=== PATIENT | male | born 1980 | race Two or more races ===

== ENCOUNTER 2023-08-05 18:18 | Emergency (ER) | payer SELFPAY ==
[2023-08-05 18:30] VITALS: BP 141/79; PULSE 71; RESP 18; TEMP 97.7; BMI 29.1
[2023-08-05] MEDS ORDERED: ACETAMINOPHEN INJECTION 100 ML IVPB ONE (20:47)
[2023-08-05] MEDS: ACETAMINOPHEN 1000 MG/100 ML BAG IVPB ONE (21:01)
[2023-08-05] MEDS: LACTATED RINGERS SOLUTION 1000 ML INFUS.BAG IV ONE (21:02)
[2023-08-05 21:08] LABS: BASO % 0.7 % (0-2.0); EOS % 2.3 % (0-4.5); HEMATOCRIT 43.2 % (35.4-49); HEMOGLOBIN 14.8 GM/dL (11.7-16.9); LYMPH % 37.1 % (8-40); MCH 30.6 pg (25.7-33.7); MCHC 34.2 g/dl (32.0-35.9); MEAN CELL VOLUME 89.4 fl (80-96); MEAN PLT VOLUME 7.7 fl (7.5-11.1); MONO % 10.6 % (3.8-10.2); NEUT % 49.3 % (42.8-82.8); PLATELET COUNT 258 10^3/uL (134-434); RBC 4.83 M/mm3 (4.00-5.60); RDW 14.6 % (11.9-15.9); WHITE BLOOD COUNT 4.9 K/mm3 (4.0-10.0)
[2023-08-05 21:12] LABS: INR 1.06 (0.83-1.09); PROTHROMBIN TIME (PATIENT) 12.3 SEC (9.7-13.0)
[2023-08-05 21:15] LABS: ACTIVATED PTT 28.1 SECONDS (25.2-36.5)
[2023-08-05 21:23] LABS: POTASSIUM 4.6 mmol/L (3.5-5.1)
[2023-08-05 21:25] LABS: CALCIUM 9.6 mg/dL (8.5-10.1)
[2023-08-05 21:26] LABS: ALBUMIN 3.7 g/dl (3.4-5.0); BLOOD UREA NITROGEN 13.5 mg/dL (7-18); MAGNESIUM 2.3 mg/dL (1.8-2.4)
[2023-08-05 21:29] LABS: CREATININE 0.9 mg/dL (0.55-1.3)
[2023-08-05 21:30] LABS: TOT PROT 7.4 g/dl (6.4-8.2)
[2023-08-05 21:31] LABS: BILIRUBIN,TOTAL 0.3 mg/dL (0.2-1)
== END 2023-08-05 23:00 | disposition home or self-care (01) ==
LOC: JER 18:18
PROC: 3E033NZ Introduction of Analgesics, Hypnotics, Sedatives into Peripheral Vein, Percutaneous Approach (ICD-10-PCS; principal; 2023-08-05)
DX: K42.9 Umbilical hernia without obstruction or gangrene (principal); J90 Pleural effusion, not elsewhere classified; R10.31 Right lower quadrant pain; R11.0 Nausea; R14.0 Abdominal distension (gaseous)
CPT/HCPCS: 36415; 74177-TC; 80053; 83605; 83735; 85025; 85610; 85730; 86850; 86900; 86901; 99285-25; J0131; Q9967

== ENCOUNTER 2023-09-16 00:04 | Emergency (ER) | payer SELFPAY ==
[2023-09-16 00:11] VITALS: BP 119/87; PULSE 87; RESP 18; TEMP 98.1; BMI 28.0
[2023-09-16] MEDS ORDERED: ALBUTEROL SO4 2.5/IPRATROPIUM 0.5 INH SOL 3 ML VIAL.NEB. NEB ONE (00:59)
[2023-09-16] MEDS ORDERED: ACETAMINOPHEN INJECTION 100 ML IVPB ONE (00:59)
[2023-09-16 01:03] LABS: BASO % 0.7 % (0-2.0); EOS % 1.5 % (0-4.5); HEMATOCRIT 41.6 % (35.4-49); HEMOGLOBIN 14.2 GM/dL (11.7-16.9); LYMPH % 48.6 % (8-40); MCH 30.5 pg (25.7-33.7); MCHC 34.1 g/dl (32.0-35.9); MEAN CELL VOLUME 89.3 fl (80-96); MEAN PLT VOLUME 7.4 fl (7.5-11.1); MONO % 8.8 % (3.8-10.2); NEUT % 40.4 % (42.8-82.8); PLATELET COUNT 232 10^3/uL (134-434); RBC 4.65 M/mm3 (4.00-5.60); RDW 14.5 % (11.9-15.9); WHITE BLOOD COUNT 4.5 K/mm3 (4.0-10.0)
[2023-09-16] MEDS: ALBUTEROL SO4 2.5/IPRATROPIUM 0.5 INH SOL 3 ML VIAL.NEB. NEB ONE (01:06)
[2023-09-16] MEDS: ACETAMINOPHEN 1000 MG/100 ML BAG IVPB ONE (01:06)
[2023-09-16 01:09] LABS: INR 1.12 (0.83-1.09); PROTHROMBIN TIME (PATIENT) 12.6 SEC (9.7-13.0)
[2023-09-16 01:22] LABS: POTASSIUM 3.8 mmol/L (3.5-5.1)
[2023-09-16 01:24] LABS: ALBUMIN 3.7 g/dl (3.4-5.0); CALCIUM 9.4 mg/dL (8.5-10.1)
[2023-09-16 01:25] LABS: BLOOD UREA NITROGEN 18.5 mg/dL (7-18); MAGNESIUM 2.1 mg/dL (1.8-2.4)
[2023-09-16 01:29] LABS: BILIRUBIN,TOTAL 0.4 mg/dL (0.2-1); TOT PROT 7.3 g/dl (6.4-8.2)
[2023-09-16] MEDS ORDERED: AZITHROMYCIN 500 MG TABLET ONE (02:03)
[2023-09-16] MEDS ORDERED: AMOX TR/POT CLAV 875MG/125MG TABLETS (FP) ONE (02:03)
[2023-09-16] MEDS: AZITHROMYCIN 250 MG TABLET PO ONE (02:11)
[2023-09-16] MEDS: AMOX TR/POT CLAV 875MG/125MG TABLETS (FP) PO ONE (02:11)
== END 2023-09-16 02:13 | disposition home or self-care (01) ==
LOC: JER 00:04
PROC: 3E033NZ Introduction of Analgesics, Hypnotics, Sedatives into Peripheral Vein, Percutaneous Approach (ICD-10-PCS; principal; 2023-09-16)
PROC: 3E0F7GC Introduction of Other Therapeutic Substance into Respiratory Tract, Via Natural or Artificial Opening (ICD-10-PCS; 2023-09-16)
DX: R07.89 Other chest pain (principal); J18.9 Pneumonia, unspecified organism; R06.89 Other abnormalities of breathing
CPT/HCPCS: 36415; 71045-TC-FY; 80053; 83735; 84484; 85025; 85379; 85610; 85730; 93005; 93010; 99285-25; J0131